=== PATIENT | female | born 1955 | race Caucasian/White ===

== ENCOUNTER 2017-05-12 13:15 | Emergency (ER) | payer SELFPAY ==
[~2017-05-12] VITALS: Ht 165.1 cm; Wt 92.0 kg
[~2017-05-12 13:15] MED LIST: VITAMINS
[2017-05-12 13:17] VITALS: Ht 165.1 cm; Wt 92.0 kg
== END 2017-05-12 15:13 | disposition left against medical advice (07) ==
LOC: E/R 13:15
DX: Z53.21 Procedure and treatment not carried out due to patient leaving prior to being seen by health care provider (principal)